=== PATIENT | male | born 1960 | race Caucasian/White ===

== ENCOUNTER → 2023-09-14 | Outpatient (CLI) | payer MEDICARE, OTHER ==
--- NOTE | 2023-09-14 09:32 | CTL ---
EXAMINATION TYPE: CT Low Dose Lung DATE OF EXAM: 09/14/2023 8:18 AM CLINICAL INDICATION:Male, 63 years old with history of Z12.2 LUNG CA SCREEN F17.210 CURRENT SMOKER; personal history of nicotine dependence , history of tobacco use. COMPARISON: None. TECHNIQUE: Multiple axial non-contrast scans were obtained from approximately the lung apices through the upper abdomen. Coronal and sagittal reformatted images were obtained. Low dose technique was uti lized. CT DLP: 89.1 mGycm, Automated exposure control for dose reduction was used. CT Contrast: Contrast used: None Oral contrast used: None FINDINGS: ======== Lack of intravenous contrast and low dose technique limits the evaluation of the vascular and soft ti ssue structures. LUNGS: No evidence of pulmonary fibrosis. No evidence of focal consolidation, pneumothorax or pleural effusion. Centrilobular and paraseptal emphysema changes. Nodules: RUL: Intrafissural lymph node series 5 image 37. RML: 5 mm image 42 RLL: None. JAKI: None. LLL: Calcified granuloma image 47, or intrafissural lymph node image 34, 2 mm image 33. AIRWAY: Patent and unremarkable. HEART: Size within normal limits. Atherosclerosis of the coronary arteries. MEDIASTINUM: No gross evidence of adenopathy. VASCULATURE: No aortic aneurysm. MUSCULOSKELETAL: No acute osseous abnormalities SOFT TISSUES/LYMPH NODES: Unremarkable. LOWER NECK: No significant findings. UPPER ABDOMEN: Scattered colonic diverticula. IMPRESSION: 1. No clinically significant pulmonary nodules. 2. Mild emphysema. CT LUNG RAD AND CT CHEST RECOMMENDATION: Lung-Rad 2 Benign Appearance or Behavior: Continue annual sc reening with LDCT in 12 months. S Modifier (other clinically significant findings): None Recommend smoking cessation (if current smoker), or continuation of smoking cessation (if prior smoke r). Annual screening for lung cancer with low-dose computed tomography is recommended in adults ages 55 to 77 years who have a 30 pack-year smoking history and currently smoke or have quit within the pa st 15 years. Screening should be discontinued once a person has not smoked for 15 years or develops a health problem that substantially limits life expectancy or the ability or willingness to have curat hilda lung surgery. Lung rads 2021 [email or web address]
== END | disposition home or self-care (01) ==
LOC: RADCTMAIN 07:51
PROVIDERS: ATTEND Family Medicine
DX: Z12.2 Encounter for screening for malignant neoplasm of respiratory organs (principal); F17.210 Nicotine dependence, cigarettes, uncomplicated; J43.9 Emphysema, unspecified
CPT/HCPCS: 71271

== ENCOUNTER 2023-11-13 08:49 | Day surgery (SDC) | payer MEDICARE ==
[2023-11-13 09:38] VITALS: TEMP 97.6
[2023-11-13] MEDS: IV FLUID CONTINUATION 1,000 ML IV ONE (09:38)
[2023-11-13] MEDS: LACTATED RINGERS 1,000 ML IV SCH (09:39)
[2023-11-13] MEDS ORDERED: PROPOFOL 10 MG/ML 20 ML VIAL IV ONE (10:10)
[2023-11-13] MEDS ORDERED: GLYCOPYRROLATE 0.2 MG/ML 2 ML VIAL ONE (10:10)
--- NOTE | 2023-11-13 10:35 | P.PCN ---
Date of Procedure: 11/13/23 Procedure(s) Performed: BRIEF HISTORY: Patient is a 63-year-old pleasant white male scheduled for an elective colonoscopy as a part of screening for colon cancer. PROCEDURE PERFORMED: Colonoscopy with biopsy. PREOPERATIVE DIAGNOSIS: Screening for colon cancer. IV sedation per Anesthesia. PROCEDURE: After informed consent was obtained, the patient, was brought into the endoscopy unit. IV sedation was administered by Anesthesia under continuous monitoring. Digital rectal examination was normal. Initially the Olympus CF-160 flexible video colonoscope was then inserted in the rectum, gradually advanced into the cecum without any difficulty. Careful examination was performed as the scope was gradually being withdrawn. Ileocecal valve and the appendiceal orifice were visualized and appeared normal. Prep was excellent. Mucosa of the cecum, ascending colon, transverse colon, descending colon, sigmoid colon, and rectum appeared normal. In the distal rectum there was a 4 mm polyp that was removed by cold biopsy. Moderate sigmoid diverticulosis. Retroflexion was performed in the rectum and no lesions were seen. The patient tolerated the procedure well. IMPRESSION: 4 mm distal rectal polyp status post cold biopsy Scattered sigmoid diverticulosis RECOMMENDATIONS: Findings of this examination were discussed with the patient patient as well as his family. He was advised to follow the biopsy results and have repeat colonoscopy in 5 to 10 years based on the biopsy.
[2023-11-13 10:41] VITALS: PULSE 57
[2023-11-13 10:57] VITALS: BP 159/86; RESP 17
== END 2023-11-13 11:33 | disposition home or self-care (01) ==
LOC: ORWHC2ENDO 08:49
PROVIDERS: ATTEND Internal Medicine Gastroenterology
DX: Z12.11 Encounter for screening for malignant neoplasm of colon (principal); K57.30 Diverticulosis of large intestine without perforation or abscess without bleeding; K62.1 Rectal polyp; Z87.891 Personal history of nicotine dependence; Z87.442 Personal history of urinary calculi
CPT/HCPCS: 88305; 45380; J2704; J1596

== ENCOUNTER → 2023-12-06 | Outpatient (CLI) | payer MEDICARE ==
[2023-12-06 15:01] LABS: Basophils # (A) 0.08 X 10*3/uL (0.00-0.10); Basophils % (A) 1.1 %; Eosinophils # (A) 0.19 X 10*3/uL (0.04-0.35); Eosinophils % (A) 2.7 %; Lymphocytes # (A) 1.67 X 10*3/uL (0.90-5.00); Lymphocytes % (A) 23.9 %; MCHC 33.3 g/dL (32.0-37.0); Mean Platelet Volume 12.3 FL (9.5-12.2); Monocytes # (A) 0.68 X 10*3/uL (0.20-1.00); Monocytes % (A) 9.7 %; NRBC Per 100 WBC 0 X 10*3/uL (0.00-0.01); Neutrophils # (A) 4.35 X 10*3/uL (1.80-7.70); Neutrophils % (A) 62.3 %; Platelet Count 183 X 10*3/uL (140-440); RDW 12.9 % (11.5-14.5); WBC 6.99 X 10*3/uL (4.50-10.00)
[2023-12-06 15:10] LABS: Blood Urea Nitrogen 17.1 mg/dL (9.0-27.0); Calcium 8.9 mg/dL (8.7-10.3); Carbon Dioxide 23.6 mmol/L (21.6-31.8); Chloride 106 mmol/L (96-109); Glucose 112 mg/dL (70-110); Potassium 4.4 mmol/L (3.5-5.5); Sodium 138 mmol/L (135-145)
[2023-12-06 15:39] LABS: Appearance,Urine Turbid (Clear); Bilirubin,Urine Negative (Negative); Blood,Urine Small (Negative); Color,Urine Dark Yellow (Yellow); Ketones,Urine Trace (Negative); Nitrite,Urine Negative (Negative); Specific Gravity,Urine 1.026 (1.001-1.030); Urobilinogen,Urine 0.2 E.U./DL
[2023-12-06 15:47] LABS: Bacteria,Urine None Seen (None Seen)
== END | disposition home or self-care (01) ==
LOC: LABWHC1 09:58
PROVIDERS: ATTEND Urology
DX: C61 Malignant neoplasm of prostate (principal)
CPT/HCPCS: 36415; 80048; 81001; 85025; 86850; 86900; 86901; 87086

== ENCOUNTER 2023-12-13 10:13 | Day surgery (SDC) | payer MEDICARE ==
[2023-12-06 15:20] VITALS: BMI 22.2
--- NOTE | 2023-12-13 07:42 | P.HPIHPCON ---
History of Present Illness H&P Date: 12/13/23 Chief Complaint: Prostate cancer This is a 63-year-old male with history of high volumr [place] 7 (3+4) prostate cancer. Option of a robotic radical prostatectomy versus radiation therapy was discussed with him in detail, he agreed to proceed with a robotic radical prostatectomy, aware of the risk which includes but not limited to bleeding, infection, injury to nearby organs. Discussed also risk of urinary incontinence and erectile dysfunction. Risk of cancer recurrence and the need for additional treatment was also discussed. He understood all the risk and agreed to proceed Consent for Procedure: I have explained the operation/procedure to the patient, including the risks, benefits, side effects, alternative therapies (including not receiving the proposed treatment or service), the likelihood of the patient achieving his/her goals, and potential recuperation problems for the procedure/sedation/analgesia, as well as any blood products, if indicated. I also explained to the patient the risks, benefits and side effects of the alternatives, as well as the risks related to not receiving the proposed procedure, care, treatment, or services. Past Medical History Past Medical History: Cancer Additional Past Medical History / Comment(s): prostate CA dx ,pt stated "when golfing had episodes of lightheadedness, dizziness, and breaking out in a sweat which made him follow up with pcp who suggested to see material lister in October 2023". History of Any Multi-Drug Resistant Organisms: None Reported Past Surgical History: Tonsillectomy Additional Past Surgical History / Comment(s): prostate bx,colonoscopy Past Anesthesia/Blood Transfusion Reactions: No Reported Reaction Additional Past Anesthesia/Blood Transfusion Reaction / Comment(s): no hx. blood transfusion Past Psychological History: No Psychological Hx Reported Smoking Status: Current every day smoker, Heavy tobacco smoker Past Alcohol Use History: Daily Additional Past Alcohol Use History / Comment(s): smokes about two ppd x 40 yrs; drinks one shot of baileys every morning in coffee- no other alcohol use- instructed no alcohol 24 hrs prior to proc. Past Drug Use History: Marijuana Additional Drug Use History / Comment(s): occasional marijuana- instructed none 24 hrs prior to proc. - Past Family History Mother Family Medical History: No Reported History Father Family Medical History: Cancer Medications and Allergies Home Medications Medication Instructions Recorded Confirmed Type Acetaminophen Tab [Tylenol Tab] 500 - 1,000 mg PO Q6HR PRN 12/06/23 12/06/23 History Allergies Allergy/AdvReac Type Severity Reaction Status Date / Time No Known Allergies Allergy Verified 12/06/23 14:56 Surgical - Exam - General no distress, no pain - Eyes normal ocular movement, no pale - ENT normal nares, normal mucosa - Respiratory normal expansion, normal respiratory effort - Abdomen Abdomen: soft, non tender Assessment and Plan Assessment: OR for robotic radical prostatectomy with bilateral pelvic lymph node dissections
[~2023-12-13 10:13] MED LIST: HYDROmorphone 0.5 MG/0.5 ML SYRINGE IVP PRN
[2023-12-13] MEDS: LACTATED RINGERS 1,000 ML IV SCH (10:45)
[2023-12-13] MEDS: ONDANSETRON 4 MG/2 ML VIAL IVP ONE (10:45)
[2023-12-13] MEDS: DEXAMETHASONE SOD PHOSPHATE 4 MG/ML 1 ML VIAL IVP STA (10:46)
[2023-12-13] MEDS: IV FLUID CONTINUATION 1,000 ML IV ONE ×2 (10:55→10:56)
[2023-12-13] MEDS: fentaNYL (PF) 50 MCG/ML 2 ML AMP IVP STA (11:14)
[2023-12-13] MEDS: MIDAZOLAM 2 MG/2 ML VIAL IV ONE (11:14)
[2023-12-13] MEDS: HEPARIN SODIUM,PORCINE 5,000 UNIT/ML 1 ML VIAL SQ PRN (11:30)
[2023-12-13] MEDS ORDERED: ONDANSETRON 4 MG/2 ML VIAL IVP PRN (11:44)
[2023-12-13] MEDS ORDERED: SODIUM CHLORIDE 0.9% (PF) 10 ML VIAL ONE (12:14)
[2023-12-13] MEDS ORDERED: LIDOCAINE 1% INJ 10MG/ML (20 ML MDV) ONE (12:14)
[2023-12-13] MEDS ORDERED: GLYCOPYRROLATE 0.2 MG/ML 2 ML VIAL ONE (12:14)
[2023-12-13] MEDS ORDERED: fentaNYL (PF) 50 MCG/ML 2 ML AMP ONE (12:14)
[2023-12-13] MEDS ORDERED: KETOROLAC 15 MG/ML 1 ML VIAL ONE (12:14)
[2023-12-13] MEDS ORDERED: ROCURONIUM 10 MG/ML (5 ML VIAL) IV ONE (12:14)
[2023-12-13] MEDS ORDERED: PROPOFOL 10 MG/ML 20 ML VIAL IV ONE (12:14)
[2023-12-13] MEDS ORDERED: ROPIVACAINE 5 MG/ML 30 ML VIAL ONE (12:14)
[2023-12-13] MEDS ORDERED: NEOSTIGMINE 1 MG/ML 10 ML VIAL ONE (12:14)
[2023-12-13] MEDS ORDERED: SUCCINYLCHOLINE CHLORIDE 200 MG/10 ML VIAL IV ONE (12:14)
[2023-12-13] MEDS: BUPIVACAINE (PF) 0.25% 30 ML VIAL SQ ONE ×2 (12:20→12:53)
--- NOTE | 2023-12-13 12:20 | P.ANPRN ---
Procedure Note - Anesthesia - Nerve Block Performed Bilateral Erector Spinae Single Time Out Performed: Yes (1114) Date of Procedure: 12/13/23 Procedure Start Time: 11:15 Procedure Stop Time: 11:19 Location of Patient: PreOp Indication: Acute Post-Operative Pain, Requested by Surgeon Specifically requested for management of pain by : Fadi Ochoa Sedation Type: Sedate with meaningful contact maintained Preparation: Sterile Prep Position: Prone Catheter: None Needle Types: Pajunk Needle Gauge: 21 (x2) Ultrasound used to visualize needle placement: Yes Ultrasound used to observe medication spread: Yes Injectate: 0.5% Ropivacaine (see comment for volume) (15cc+10cc nacl pf each side) Blood Aspirated: No Pain Paresthesia on Injection Noted: No Resistance on Injection: Normal Image Stored and Saved: Yes Events: Uneventful and Well Tolerated
[2023-12-13] MEDS: LACTATED RINGERS 1,000 ML IV ONE (15:09)
--- NOTE | 2023-12-13 15:33 | P.OP ---
Date of Procedure: 12/13/23 Preoperative Diagnosis: Prostate cancer Postoperative Diagnosis: Same Procedure(s) Performed: Robotic assisted laparoscopic radical prostatectomy with bilateral pelvic lymph node dissection Implants: None Anesthesia: CAROLEA Surgeon: Fadi Ochoa Estimated Blood Loss (ml): 100 Pathology: other (Prostate, bilateral seminal vesicle, bilateral pelvic lymph nodes) Condition: stable Disposition: PACU Indications for Procedure: This is a 63-year-old male with history of high volumr [place] 7 (3+4) prostate cancer. Option of a robotic radical prostatectomy versus radiation therapy was discussed with him in detail, he agreed to proceed with a robotic radical prostatectomy, aware of the risk which includes but not limited to bleeding, infection, injury to nearby organs. Discussed also risk of urinary incontinence and erectile dysfunction. Risk of cancer recurrence and the need for additional treatment was also discussed. He understood all the risk and agreed to proceed Description of Procedure: After preoperative antibiotics were started, the patient was taken to the operating room. Anesthesia was induced and the patient was placed in a supine position, with adequate padding of the pressure points, shoulders, back, legs and arms. He was then prepped and draped in the standard fashion. A critical pause was performed using two patient identifiers. A 16F baldwin catheter was placed to gravity drainage. A pneumo-peritoneum was created with placement of a Veress needle to 20 mm Hg without complication, and a 8 Fr trocar was placed above the umbillicus. Under direct vision a 8mm robotic ports was placed lateral to each rectus slightly below the camera port. The left iliac fossa 8mm port was placed. The right apartment assistant manager right iliac fossa 12mm port and right paramedian 5mm portwere placed. After the patient was placed in the trendelenberg position, the robot was then docked to the 8mm robotic ports and then each robotic arm and tower was checked in relation to the patient's legs and hands to avoid inadvertent compression. The peritoneal cavity was inspected. An inverted U-shaped incision began laterally to the left medial umbilical ligament and extended high across the midline to the right umbilical ligament. The limbs of the "U" extended to the level of the vasa on both sides. We next developed the preperitoneal space and the space of Retzius. Cautery was used to dissected the bladder away from the prostate. After the anterior bladder neck was incised and the bladder entered the the posterior bladder neck was exposed and the ureteral orifces identified. The posterior bladder neck was then incised and dissected away from the prostate. The vas and the seminal vesicles were now exposed and dissected to their insertions into the prostate and were not spared. The posterior layer of the Denonvillier's fascia was incised to enter isa the plane between prostate and perirectal fat. Vessel sealer was used for nerve dissection, partial nerve dissection was performed bilaterally, The puboprostatic ligament was incised where it inserted into the apex of the prostate and a plane between urethra and dorsal venous complex developed to expose the anterior urethral surface. The anterior wall of the urethra was transected with the cut setting a few millimeters distal to the apex of the prostate. The dorsal vein was ligated using 3-0 V lock bilateral obturator and external iliac lymph node packets were carefully dissected after careful visualization of the hypogastric artery and obturator nerve. There was careful attention paid to hemostasis with judicious use of cautery. The urethrovesical anastomosis was performed . the posterior denovillers was reapproximated using 3-0 V lock. A 6 and 6 inch 3-0 V-Lock suture was used to anastomose the urethra and bladder, starting at the 6:00 posterior position. Mucosa was secured in every stitch, to ensure a mucosa to mucosa anastomosis. The stitch was regularly cinched and the anastomosis tightened. Care was taken to not violate the ureteral orifices. The Baldwin catheter was advanced, the bladder filled, and the anastomosis was tested, as described above. Anastomsis was watertight at 200 mL The periumbilical fascia was closed with 1-0-PDS suture in figure of 8 fashion. All ports were closed with a subcuticular 4-0 monocryl and Dermabond. Sponge, instrument, and needle counts were correct at the end of the case x2. All specimens including prostate and lymph nodes were sent to pathology for diagnosis and will be available in a week. The patient tolerated the surgery well and without complication. He awoke withou t difficulty and was taken to the recovery room in stable condition
[2023-12-13] MEDS: hydrALAZINE HCL 20 MG/ML 1 ML VIAL IVP PRN (16:07)
[2023-12-13] MEDS: KETOROLAC 15 MG/ML 1 ML VIAL IVP SCH (17:19)
[2023-12-13] MEDS: HEPARIN SODIUM,PORCINE 5,000 UNIT/ML 1 ML VIAL SQ SCH (17:19)
[2023-12-13] MEDS: D5-0.45% NACL WITH KCL 20MEQ/L 1,000 ML IV SCH (17:20)
[2023-12-13] MEDS: HYDROcodone/APAP 5-325MG 1 EACH TAB PO PRN (21:53)
[2023-12-14 02:24] VITALS: PULSE 64
[2023-12-14 07:46] VITALS: BP 132/71; RESP 17; TEMP 98.1
--- NOTE | 2023-12-14 10:02 | P.DS ---
Providers Attending physician: Fadi Ochoa MD Primary care physician: Stated None Hospital Course: Patient was admitted yesterday the patient was admitted yesterday for a radical prostatectomy by . This was uneventful. He did well overnight. His urine is clear. His abdomen was soft. He will be discharged home. He will take Tylenol or Motrin for pain. He will be instructed in catheter care. He will follow-up in the office in 1 week. Postop instructions given. Patient Condition at Discharge: Good Plan - Discharge Summary Discharge Rx Participant: No New Discharge Prescriptions: No Action Acetaminophen Tab [Tylenol Tab] 500 - 1,000 mg PO Q6HR PRN PRN Reason: Pain Discharge Medication List Acetaminophen Tab [Tylenol Tab] 500 - 1,000 mg PO Q6HR PRN 12/06/23 [History] Follow up Appointment(s)/Referral(s): Fadi Ochoa MD [STAFF PHYSICIAN] - 12/26/23 10:20 am Patient Instructions/Handouts: Faustin Catheter Placement and Care (DC), Urinary Leg Bag (GEN), Robot Assisted Laparoscopic Prostatectomy (DC), How to Change a Catheter Drainage Bag (DC) Activity/Diet/Wound Care/Special Instructions: home with cath , leg and overnight bag Discharge Disposition: HOME SELF-CARE
== END 2023-12-14 10:10 | disposition home or self-care (01) ==
LOC: OR 10:13 → 4SSUR 15:26 → OR 12-14 10:10
PROVIDERS: ATTEND Urology
CPT/HCPCS: 38571; 55866; 64999; 88307; 88309; S2900